=== PATIENT | female | born 1960 | race Two or more races ===

== ENCOUNTER 2022-09-28 23:44 | Inpatient (IN) | payer MEDICAID ==
[~2022-09-28] VITALS: Ht 160 cm; Wt 77.5 kg
[2022-09-29 00:50] LABS: Basophils # (auto) 0 10 ^3/uL (0-0.2); Basophils % (auto) 0.3 % (0.0-2.0); Eosinophils # (auto) 0.1 10 ^3/uL (0-0.8); Eosinophils % (auto) 0.7 % (0.0-7.0); Hemoglobin 16.4 g/dL (12.2-16.2); Lymphocytes # (auto) 1.8 10 ^3/uL (0.4-5.4); Mean Corpuscular Hemoglobin 28.8 pg (28.0-32.0); Mean Corpuscular Hgb Conc. 32.7 g/dL (32.0-36.0); Mean Corpuscular Volume 88.1 fL (80.0-100.0); Monocytes # (auto) 0.7 10 ^3/uL (0-1.3); Monocytes % (auto) 6.8 % (0.0-12.0); Neutrophils # (auto) 7.1 10 ^3/uL (1.6-8.6); Neutrophils % (auto) 73.2 % (37.0-80.0); Nucleated Red Blood Cells % 0.1 %; Red Blood Cells 5.68 10^6/uL (4.0-5.20); Red Cell Distribution Width 13.9 % (11.8-14.3); White Blood Cell 9.7 10^3/uL (4.4-10.8)
[2022-09-29 01:05] LABS: INR 1.04 (0.9-1.15); Partial Thromboplastin Time 29.1 sec (24.6-33.4)
[2022-09-29 01:07] LABS: BUN/Creatinine Ratio 12.9; Magnesium 2.2 mg/dL (1.6-2.6); Potassium 4.4 mmol/L (3.5-5.1)
[2022-09-29 01:10] LABS: Bilirubin, Total 0.9 mg/dL (0.2-1.0); Total Protein 7.2 g/dL (6.4-8.2)
[2022-09-29] MEDS ORDERED: HEPARIN DRIP/D5W 100UNITS/ML 250 ML IV SCH (02:00)
[2022-09-29] MEDS ORDERED: ASPirin 325 MG TAB PO ONE (02:00)
[2022-09-29] MEDS ORDERED: HEPARIN SODIUM (PORCINE) 5000 UNITS/ML 1ML VIAL IV ONE (02:00)
[2022-09-29] MEDS ORDERED: FUROSEMIDE 20 MG/2 ML VIAL IV ONE (02:00)
[2022-09-29] MEDS ORDERED: IOHEXOL 350 MG/ML 100ML IJ ONE (04:20)
[2022-09-29 04:40] LABS: Urine Bacteria MOD /hpf (None Seen); Urine Blood TRACE /uL (Negative); Urine Mucus FEW (None Seen); Urine Specific Gravity 1.014 (1.001-1.035); Urine WBC 1 /hpf (0 - 5)
[2022-09-29] MEDS ORDERED: MORPHINE SULFATE INJ 2 MG/ml SYRG IV PRN (06:45)
[2022-09-29] MEDS ORDERED: NITROGLYCERIN 0.4 MG SL TAB SL PRN (06:45)
[2022-09-29] MEDS ORDERED: ONDANSETRON HCL 4 MG/2 ML VIAL IV PRN (06:45)
[2022-09-29] MEDS ORDERED: ALBUTEROL SULF 2.5 MG/0.5ML(0.5%) NEB SOLN NEB PRN (06:45)
[2022-09-29 08:47] VITALS: BP 132/69
[2022-09-29] MEDS ORDERED: FUROSEMIDE 20 MG TAB PO SCH (10:00)
[2022-09-29] MEDS: SACUBITRIL-VALSARTAN 24mg/26mg TAB PO SCH ×2 (10:55→22:34)
[2022-09-29] MEDS: ASPirin 81 mg TAB PO SCH (10:56)
[2022-09-29] MEDS: PANTOPRAZOLE 40 MG TAB PO SCH (10:56)
[2022-09-29] MEDS ORDERED: ENOXAPARIN SOD 100 MG/1 ML SYRINGE SC ONE (11:15)
[2022-09-29 11:21] LABS: INR 1.15 (0.9-1.15)
[2022-09-29] MEDS: ENOXAPARIN SOD 80 MG/0.8ML SYRINGE SC SCH ×2 (11:34→22:34)
[2022-09-29 11:52] LABS: Cholesterol 135 mg/dL (< 200)
[2022-09-29 11:55] LABS: HDL Cholesterol 62 mg/dL (40-59); LDL Cholesterol 70 mg/dL (< 100); Triglycerides 68 mg/dL (< 150)
[2022-09-29] MEDS: FUROSEMIDE 40 MG/4 ML VIAL IV SCH (18:27)
[2022-09-29 22:22] LABS: Amphetamine Screen, Urine POSITIVE (NEGATIVE); Barbiturate Scree,Urine NEGATIVE (NEGATIVE); Benzodiazephine Screen, Urine NEGATIVE (NEGATIVE); Cannabinoid Screen, Urine NEGATIVE (NEGATIVE); Cocaine Screen, Urine NEGATIVE (NEGATIVE); Opiate Scree,Urine NEGATIVE (NEGATIVE)
[2022-09-29 22:30] LABS: Phencyclidine Screen, Urine NEGATIVE (NEGATIVE)
[2022-09-29] MEDS: ATORVASTATIN 20 MG TAB PO SCH (22:33)
[2022-09-29] MEDS: CARVEDILOL 3.125 MG TAB PO SCH (22:34)
[2022-09-30 05:49] LABS: Basophils # (auto) 0 10 ^3/uL (0-0.2); Eosinophils # (auto) 0.1 10 ^3/uL (0-0.8); Eosinophils % (auto) 1.8 % (0.0-7.0); Hematocrit 49.3 % (36.0-46.0); Hemoglobin 16.2 g/dL (12.2-16.2); Lymphocytes # (auto) 1.5 10 ^3/uL (0.4-5.4); Lymphocytes % (auto) 29.2 % (10.0-50.0); Mean Corpuscular Hemoglobin 28.9 pg (28.0-32.0); Mean Corpuscular Hgb Conc. 32.9 g/dL (32.0-36.0); Mean Corpuscular Volume 87.9 fL (80.0-100.0); Monocytes # (auto) 0.8 10 ^3/uL (0-1.3); Monocytes % (auto) 15.3 % (0.0-12.0); Neutrophils # (auto) 2.7 10 ^3/uL (1.6-8.6); Neutrophils % (auto) 52.7 % (37.0-80.0); Nucleated Red Blood Cells % 0.2 %; Red Blood Cells 5.61 10^6/uL (4.0-5.20); Red Cell Distribution Width 13.6 % (11.8-14.3)
[2022-09-30 06:02] LABS: Albumin 3.6 g/dL (3.4-5.0); Calcium 9.2 mg/dL (8.5-10.1)
[2022-09-30 06:06] LABS: BUN/Creatinine Ratio 23.1; Bilirubin, Total 0.8 mg/dL (0.2-1.0); Total Protein 6.9 g/dL (6.4-8.2)
[2022-09-30 06:23] VITALS: BP 107/40
[2022-09-30] MEDS ORDERED: PNEUMOCOCCAL VACC POLYS 25 MCG/0.5 ML VIAL IM ONE (06:45)
[2022-09-30] MEDS ORDERED: INFLUENZA QUAD 2022-2023 0.5 ML SYRG IM ONE (06:45)
[2022-09-30] MEDS: EMPAGLIFLOZIN 10 MG TAB PO SCH (06:52)
[2022-09-30] MEDS: FUROSEMIDE 40 MG/4 ML VIAL IV SCH ×2 (06:52→17:32)
[2022-09-30] MEDS ORDERED: CHOL20007 PO (07:35)
[2022-09-30] MEDS ORDERED: FURO1TAB33 PO (07:35)
[2022-09-30] MEDS ORDERED: CARV6.2551 PO (07:35)
[2022-09-30] MEDS ORDERED: DAPA1TAB4 PO (07:35)
[2022-09-30] MEDS ORDERED: ALBU2TAB4 INH (07:35)
[2022-09-30] MEDS ORDERED: SPIR25TA8 PO (07:35)
[2022-09-30] MEDS ORDERED: SACU1TAB PO (07:35)
[2022-09-30] MEDS ORDERED: ACET-1156 PO (07:35)
[2022-09-30] MEDS ORDERED: ASPI-543 PO (07:35)
[2022-09-30] MEDS ORDERED: ATOR10TA52 PO (07:35)
[2022-09-30 09:00] VITALS: BP 101/69
[2022-09-30] MEDS: ENOXAPARIN SOD 80 MG/0.8ML SYRINGE SC SCH ×2 (09:14→22:07)
[2022-09-30] MEDS: PANTOPRAZOLE 40 MG TAB PO SCH (09:14)
[2022-09-30] MEDS: ASPirin 81 mg TAB PO SCH (09:14)
[2022-09-30] MEDS: SACUBITRIL-VALSARTAN 24mg/26mg TAB PO SCH ×2 (09:14→22:07)
[2022-09-30] MEDS: CARVEDILOL 3.125 MG TAB PO SCH ×2 (09:17→22:07)
[2022-09-30 13:00] VITALS: BP 107/53
[2022-09-30 17:00] VITALS: BP 104/57
[2022-09-30] MEDS: guaiFENesin-DM 100/10mg/5ml SYR PO PRN ×2 (17:31→23:31)
[2022-09-30 22:00] VITALS: BP 115/50
[2022-09-30] MEDS: ATORVASTATIN 20 MG TAB PO SCH (22:07)
[2022-10-01 04:56] VITALS: BP 106/51
[2022-10-01] MEDS: FUROSEMIDE 40 MG/4 ML VIAL IV SCH ×2 (06:04→17:54)
[2022-10-01] MEDS: EMPAGLIFLOZIN 10 MG TAB PO SCH (06:04)
[2022-10-01 08:00] VITALS: BP 107/59
[2022-10-01] MEDS: CARVEDILOL 3.125 MG TAB PO SCH ×2 (10:00→22:06)
[2022-10-01] MEDS: ASPirin 81 mg TAB PO SCH (10:30)
[2022-10-01] MEDS: SACUBITRIL-VALSARTAN 24mg/26mg TAB PO SCH ×2 (10:30→22:06)
[2022-10-01] MEDS: PANTOPRAZOLE 40 MG TAB PO SCH (10:30)
[2022-10-01] MEDS: ENOXAPARIN SOD 80 MG/0.8ML SYRINGE SC SCH (10:31)
[2022-10-01] MEDS: guaiFENesin-DM 100/10mg/5ml SYR PO PRN ×2 (10:31→22:07)
[2022-10-01 13:00] VITALS: BP 114/58
[2022-10-01 13:20] LABS: Hepatitis C Antibody Negative (Negative)
[2022-10-01 16:46] VITALS: BP 125/62
[2022-10-01 22:00] VITALS: BP 131/80
[2022-10-01] MEDS: ATORVASTATIN 20 MG TAB PO SCH (22:07)
[2022-10-02] MEDS ORDERED: TEMAZEPAM 15 MG CAP PO ONE (00:45)
[2022-10-02 05:00] VITALS: BP 118/81
[2022-10-02] MEDS: EMPAGLIFLOZIN 10 MG TAB PO SCH (06:31)
[2022-10-02] MEDS: FUROSEMIDE 40 MG/4 ML VIAL IV SCH (06:31)
[2022-10-02 08:00] VITALS: BP 121/58
[2022-10-02] MEDS: ASPirin 81 mg TAB PO SCH (09:41)
[2022-10-02] MEDS: PANTOPRAZOLE 40 MG TAB PO SCH (09:42)
[2022-10-02] MEDS: SACUBITRIL-VALSARTAN 24mg/26mg TAB PO SCH (09:42)
[2022-10-02] MEDS: CARVEDILOL 3.125 MG TAB PO SCH (09:43)
[2022-10-02] MEDS ORDERED: ENOXAPARIN SOD 40 MG/0.4 ML SYRINGE SC SCH (10:00)
[2022-10-02] MEDS ORDERED: FURO1TAB31 PO (11:12)
[2022-10-02 12:00] VITALS: BP 107/54
[2022-10-02 12:35] VITALS: BP 121/58
== END 2022-10-02 14:50 | disposition home or self-care (01) | DRG 194 ==
LOC: EDBD 23:44 → ER 23:51 → TELE 09-29 06:42 → TELE-WESTW 09-30 06:14
PROVIDERS: ADMIT Nurse Practitioner; ATTEND Internal Medicine
DX: I11.0 Hypertensive heart disease with heart failure (principal); I21.A1 Myocardial infarction type 2; I42.7 Cardiomyopathy due to drug and external agent; I50.43 Acute on chronic combined systolic (congestive) and diastolic (congestive) heart failure; J44.1 Chronic obstructive pulmonary disease with (acute) exacerbation; N39.0 Urinary tract infection, site not specified; T50.905A Adverse effect of unspecified drugs, medicaments and biological substances, initial encounter; J10.1 Influenza due to other identified influenza virus with other respiratory manifestations; F15.10 Other stimulant abuse, uncomplicated; F19.10 Other psychoactive substance abuse, uncomplicated; Z20.822 Contact with and (suspected) exposure to COVID-19; Z79.899 Other long term (current) drug therapy; Z87.891 Personal history of nicotine dependence; Z95.810 Presence of automatic (implantable) cardiac defibrillator; Y92.89 Other specified places as the place of occurrence of the external cause; Z28.21 Immunization not carried out because of patient refusal
CPT/HCPCS: 36415; 71045; 71275; 80053; 80061; 80307; 81001; 83036; 83735; 83880; 84443; 84484; 85025; 85610; 85730; 86803; 87340; 87426; 87804; 93005; 93306; 94640; 96365; 96375; 96376; 99291; G0378

== ENCOUNTER 2023-10-20 03:28 | Inpatient (IN) | payer MEDICAID ==
[~2023-10-20] VITALS: Ht 162.6 cm; Wt 78.0 kg
[~2023-10-20 03:28] MED LIST: ACET-1881 PO; ALBU2TAB11 INH; ALBUAER3 IN; ASPI-543 PO; ASPI81CH59 PO; ATOR10TA52 PO; CARV6.2551 PO; CHOL20007 PO; DAPA1TAB4 PO; FURO1TAB31 PO; FURO20TA3 PO; SACU1TAB PO; SPIR25TA8 PO
[2023-10-20] MEDS ORDERED: ONDANSETRON HCL 4 MG/2 ML VIAL IV ONE (03:45)
[2023-10-20] MEDS ORDERED: MORPHINE SULFATE 4 MG/ML SYR/VIAL IV ONE (03:45)
[2023-10-20] MEDS ORDERED: NITROGLYCERIN 2% OINT 1GM PKG TD ONE (03:45)
[2023-10-20 04:15] LABS: Basophils # (auto) 0.1 10 ^3/uL (0-0.2); Basophils % (auto) 0.7 % (0.0-2.0); Eosinophils # (auto) 0.2 10 ^3/uL (0-0.8); Eosinophils % (auto) 2.6 % (0.0-7.0); Hematocrit 43.1 % (36.0-46.0); Hemoglobin 14.4 g/dL (12.2-16.2); Lymphocytes # (auto) 2.7 10 ^3/uL (0.4-5.4); Lymphocytes % (auto) 31.7 % (10.0-50.0); Mean Corpuscular Hemoglobin 29.2 pg (28.0-32.0); Mean Corpuscular Hgb Conc. 33.4 g/dL (32.0-36.0); Mean Corpuscular Volume 87.4 fL (80.0-100.0); Monocytes # (auto) 0.7 10 ^3/uL (0-1.3); Monocytes % (auto) 7.8 % (0.0-12.0); Neutrophils # (auto) 4.8 10 ^3/uL (1.6-8.6); Neutrophils % (auto) 57.2 % (37.0-80.0); Nucleated Red Blood Cells % 0.1 %; Red Blood Cells 4.93 10^6/uL (4.0-5.20); Red Cell Distribution Width 13.3 % (11.8-14.3); White Blood Cell 8.4 10^3/uL (4.4-10.8)
[2023-10-20 04:18] LABS: INR 1.07 (0.9-1.15); Prothrombin Time 11.2 sec (9.3-11.8)
[2023-10-20 04:27] VITALS: PULSE 114; RESP 20; O2SAT 94
[2023-10-20 04:29] LABS: Alanine Aminotransferase 30 U/L (7-40); Albumin 4.2 g/dL (3.2-4.8); Alkaline Phosphatase 103 U/L (46-116); Anion Gap 5 (5-15); Aspartate Aminotransferase 33 U/L (13-40); BUN/Creatinine Ratio 12.3 (10.0-20.0); Bilirubin, Total 0.8 mg/dL (0.2-1.0); Blood Urea Nitrogen 9 mg/dL (9-23); Calcium 8.8 mg/dL (8.7-10.4); Carbon Dioxide 25 mmol/L (20-30); Chloride 108 mmol/L (98-107); Glucose 101 mg/dL (74-106); Lipase 32 U/L (12-53); Potassium 3.5 mmol/L (3.5-5.1); Sodium 138 mmol/L (136-145); Total Protein 6.4 g/dL (5.7-8.2)
[2023-10-20 05:00] VITALS: BP 91/53; PULSE 72; RESP 18; TEMP 97.7; O2SAT 95
[2023-10-20] MEDS ORDERED: HEPARIN DRIP/D5W 100UNITS/ML 250 ML IV SCH (06:00)
[2023-10-20] MEDS ORDERED: HEPARIN SODIUM (PORCINE) 5000 UNITS/ML 1ML VIAL IV ONE (06:00)
[2023-10-20 08:00] VITALS: PULSE 91; RESP 17; O2SAT 94
[2023-10-20] MEDS ORDERED: DOCUSATE SOD 100 MG CAP PO PRN (09:45)
[2023-10-20] MEDS ORDERED: FUROSEMIDE 100 MG/10ML VIAL IV ONE (09:45)
[2023-10-20] MEDS ORDERED: HYDROcodone-ACET 5/325MG TAB PO PRN (09:45)
[2023-10-20] MEDS ORDERED: ASPirin-EC 325mg tab PO ONE (09:45)
[2023-10-20] MEDS ORDERED: NITROGLYCERIN 0.4 MG SL TAB SL PRN (09:45)
[2023-10-20] MEDS ORDERED: MORPHINE SULFATE INJ 2 MG/ml SYRG IV PRN (09:45)
[2023-10-20] MEDS ORDERED: ACETAMINOPHEN 325 MG TAB PO PRN (09:45)
[2023-10-20] MEDS ORDERED: ONDANSETRON HCL 4 MG/2 ML VIAL IV PRN (09:45)
[2023-10-20] MEDS ORDERED: IOHEXOL 350 MG/ML 100ML IJ ONE (09:51)
[2023-10-20] MEDS ORDERED: IPRATROPIUM BROM 0.5 MG/2.5ML INH SOL NEB ONE (11:15)
[2023-10-20] MEDS ORDERED: LEVALBUTEROL HCL 1.25 MG/3 ML NEB NEB ONE (11:15)
[2023-10-20] MEDS ORDERED: ALBUTEROL SULF 2.5 MG/0.5ML(0.5%) NEB SOLN NEB PRN (11:30)
[2023-10-20] MEDS ORDERED: IPRATROPIUM BROM 0.5 MG/2.5ML INH SOL NEB PRN (11:30)
[2023-10-20 11:59] LABS: Amphetamine Screen, Urine Pos (NEGATIVE); Barbiturate Scree,Urine Neg (NEGATIVE); Benzodiazephine Screen, Urine Neg (NEGATIVE); Cannabinoid Screen, Urine Neg (NEGATIVE); Cocaine Screen, Urine Neg (NEGATIVE); Opiate Scree,Urine Pos (NEGATIVE); Phencyclidine Screen, Urine Neg (NEGATIVE)
[2023-10-20 13:14] LABS: INR 1.08 (0.9-1.15); Prothrombin Time 11.3 sec (9.3-11.8)
[2023-10-20] MEDS ORDERED: FUROSEMIDE 20 MG/2 ML VIAL IV SCH (18:00)
[2023-10-20 19:40] VITALS: PULSE 89; RESP 15; O2SAT 95
[2023-10-20 20:41] VITALS: BP 129/56; PULSE 89; RESP 16; TEMP 97.8; O2SAT 95
[2023-10-20] MEDS: SACUBITRIL-VALSARTAN 24mg/26mg TAB PO SCH (21:44)
[2023-10-20] MEDS: ATORVASTATIN 20 MG TAB PO SCH (21:44)
[2023-10-20] MEDS: CARVEDILOL 3.125 MG TAB PO SCH (21:44)
[2023-10-20 23:39] VITALS: PULSE 79; RESP 20; O2SAT 95
[2023-10-21] VITALS (7 sets, daily range): BP systolic 91–125; BP diastolic 54–66; PULSE 54–82; RESP 16–18; TEMP 96–98.2; O2SAT 92–99
[2023-10-21] MEDS ORDERED: CHOL20007 OR (01:05)
[2023-10-21] MEDS ORDERED: INFLUENZA QUAD 2023-2024 0.5 ML SYRG IM ONE (02:15)
[2023-10-21] MEDS: FUROSEMIDE 20 MG/2 ML VIAL IV SCH ×2 (06:00→17:43)
[2023-10-21] MEDS: EMPAGLIFLOZIN 10 MG TAB PO SCH (06:21)
[2023-10-21 07:10] LABS: Basophils # (auto) 0 10 ^3/uL (0-0.2); Basophils % (auto) 0.8 % (0.0-2.0); Eosinophils # (auto) 0.1 10 ^3/uL (0-0.8); Eosinophils % (auto) 2.2 % (0.0-7.0); Hematocrit 42.7 % (36.0-46.0); Hemoglobin 14.1 g/dL (12.2-16.2); Lymphocytes # (auto) 2.2 10 ^3/uL (0.4-5.4); Lymphocytes % (auto) 35.8 % (10.0-50.0); Mean Corpuscular Hemoglobin 28.9 pg (28.0-32.0); Mean Corpuscular Hgb Conc. 33.1 g/dL (32.0-36.0); Mean Corpuscular Volume 87.4 fL (80.0-100.0); Monocytes # (auto) 0.6 10 ^3/uL (0-1.3); Monocytes % (auto) 10.3 % (0.0-12.0); Neutrophils # (auto) 3.1 10 ^3/uL (1.6-8.6); Neutrophils % (auto) 50.9 % (37.0-80.0); Nucleated Red Blood Cells % 0.1 %; Red Blood Cells 4.88 10^6/uL (4.0-5.20); Red Cell Distribution Width 13.4 % (11.8-14.3)
[2023-10-21 07:38] LABS: Alanine Aminotransferase 25 U/L (7-40); Alkaline Phosphatase 85 U/L (46-116); Anion Gap 10 (5-15); Aspartate Aminotransferase 22 U/L (13-40); BUN/Creatinine Ratio 16.1 (10.0-20.0); Blood Urea Nitrogen 15 mg/dL (9-23); Calcium 9.2 mg/dL (8.5-10.1); Carbon Dioxide 28 mmol/L (20-30); Chloride 103 mmol/L (98-107); Glucose 96 mg/dL (74-106); Potassium 3.5 mmol/L (3.5-5.1); Sodium 141 mmol/L (136-145)
[2023-10-21 07:39] LABS: Total Protein 6.2 g/dL (5.7-8.2)
[2023-10-21 08:56] LABS: Hepatitis B Surface Antigen Negative (Negative)
[2023-10-21 09:18] LABS: Hepatitis C Antibody Negative (Negative)
[2023-10-21] MEDS: SPIRONOLACTONE 25 MG TAB PO SCH (10:02)
[2023-10-21] MEDS: ASPirin-EC 81 mg tab PO SCH (10:02)
[2023-10-21] MEDS: CARVEDILOL 3.125 MG TAB PO SCH (10:03)
[2023-10-21] MEDS: SACUBITRIL-VALSARTAN 24mg/26mg TAB PO SCH (10:04)
[2023-10-21] MEDS: ENOXAPARIN SOD 40 MG/0.4 ML SYRINGE SC SCH (10:04)
[2023-10-21] MEDS: ATORVASTATIN 20 MG TAB PO SCH (22:14)
[2023-10-22] MEDS: SACUBITRIL-VALSARTAN 24mg/26mg TAB PO SCH ×2 (00:07→10:15)
[2023-10-22] MEDS: CARVEDILOL 3.125 MG TAB PO SCH ×2 (00:07→10:00)
[2023-10-22 05:00] VITALS: BP 104/71; PULSE 51; RESP 17; TEMP 97.5; O2SAT 92
[2023-10-22] MEDS: FUROSEMIDE 20 MG/2 ML VIAL IV SCH (06:48)
[2023-10-22] MEDS: EMPAGLIFLOZIN 10 MG TAB PO SCH (06:48)
[2023-10-22 07:00] LABS: Calcium 9.2 mg/dL (8.5-10.1); Chloride 102 mmol/L (98-107); Potassium 3.9 mmol/L (3.5-5.1); Sodium 138 mmol/L (136-145)
[2023-10-22 07:01] LABS: Anion Gap 9 (5-15); Carbon Dioxide 27 mmol/L (20-30)
[2023-10-22 07:06] LABS: BUN/Creatinine Ratio 16.7 (10.0-20.0); Blood Urea Nitrogen 14 mg/dL (9-23); Glucose 100 mg/dL (74-106)
[2023-10-22 08:30] VITALS: PULSE 41; PULSE 81; RESP 18; O2SAT 96
[2023-10-22 09:00] VITALS: BP 96/41; PULSE 73; RESP 18; TEMP 98.7; O2SAT 91
[2023-10-22] MEDS: ASPirin-EC 81 mg tab PO SCH (09:55)
[2023-10-22] MEDS: ENOXAPARIN SOD 40 MG/0.4 ML SYRINGE SC SCH (09:55)
[2023-10-22] MEDS: SPIRONOLACTONE 25 MG TAB PO SCH (09:56)
[2023-10-22 15:14] LABS: Urine Bacteria NONE SEEN /hpf (None Seen); Urine Blood Negative /uL (Negative); Urine Clarity Clear (Clear); Urine Color Yellow (Yellow); Urine Protein, UAD Negative (Negative); Urine Specific Gravity 1.035 (1.001-1.035); Urine Urobilinogen Normal (Negative); Urine WBC 3 /hpf (0 - 5)
== END 2023-10-22 16:00 | disposition home or self-care (01) | DRG 133 ==
LOC: ER 03:28 → EDBD 03:28 → TELE 09:48 → TELE-WESTW 23:17
PROVIDERS: ADMIT Nurse Practitioner Family; ATTEND Internal Medicine
DX: J96.21 Acute and chronic respiratory failure with hypoxia (principal); I21.A1 Myocardial infarction type 2; I50.23 Acute on chronic systolic (congestive) heart failure; I42.7 Cardiomyopathy due to drug and external agent; I11.0 Hypertensive heart disease with heart failure; I42.8 Other cardiomyopathies; J44.9 Chronic obstructive pulmonary disease, unspecified; E66.9 Obesity, unspecified; E78.5 Hyperlipidemia, unspecified; F15.10 Other stimulant abuse, uncomplicated; Z82.49 Family history of ischemic heart disease and other diseases of the circulatory system; Z95.810 Presence of automatic (implantable) cardiac defibrillator; Z68.29 Body mass index [BMI] 29.0-29.9, adult; Z83.3 Family history of diabetes mellitus; Z91.199 Patient's noncompliance with other medical treatment and regimen due to unspecified reason
CPT/HCPCS: 36415; 71045; 71275; 80048; 80053; 80307; 81001; 83690; 83735; 83880; 84484; 85025; 85379; 85610; 85730; 86803; 87340; 90686; 93005; 94640; 99291; G0378; J2405